=== PATIENT | male | born 1950 | race Caucasian/White ===

== ENCOUNTER 2018-02-25 06:28 | Day surgery (SDC) | payer OTHER ==
[2018-02-25] MEDS ORDERED: Ringers Lactate 1,000 ML IV ONE (06:46)
[2018-02-25] MEDS ORDERED: SIMETHICONE 40 MG/ 0.6 ML ONE (07:09)
[2018-02-25] MEDS ORDERED: HYDROCORTISONE SUC 100 MG INJ ONE (07:28)
[2018-02-25] MEDS ORDERED: LIDOCAINE 2% MPF 5 ML VIAL ONE (07:28)
[2018-02-25] MEDS ORDERED: PROPOFOL 200 MG/20 ML VIAL IV ONE (07:32)
--- NOTE | 2018-02-25 08:04 | ENDO RPT ---
[address], [address] COLONOSCOPY PROCEDURE REPORT EXAM DATE: 02/25/2018 PATIENT NAME: Gopal Zamarripa MR #: [id number] BIRTHDATE: 1950 ATTENDING: Basil Ortega Dr STATUS: outpatient OPERATIONS EXAMINER: Meagan Olivo RN and Suzy Matthews RN INDICATIONS: The patient is a 67 yr old Male here for a colonoscopy due to hematochezia, LLQ abdominal pain, change in bowel habits, and unexplained chronic diarrhea PROCEDURE PERFORMED: Colonoscopy with biopsy MEDICATIONS: Per Anesthesia. ESTIMATED BLOOD LOSS: None CONSENT: The patient understands the risks and benefits of the procedure and understands that these risks include, but are not limited to: sedation, allergic reaction, infection, perforation and/or bleeding. Alternative means of evaluation and treatment include, among others: physical exam, x-rays, and/or surgical intervention. The patient elects to proceed with this endoscopic procedure. DESCRIPTION OF PROCEDURE: During intra-op preparation period all mechanical medical equipment was checked for proper function. Hand hygiene and appropriate measures for infection prevention was taken. Procedure, possible complications, alternatives including, but not limited to possibility of bleeding, perforation, tear, infection, sepsis, need for surgery, need for blood transfusion, were explained to the patient. After the risks, benefits and alternatives of the procedure were thoroughly explained, Informed consent was verified, confirmed and timeout was successfully executed by the treatment team. The patient was placed in the left lateral position. A digital rectal exam was performed and revealed no abnormalities of the rectum. After appropriate level of anesthesia, the scope was passed. The EC-[id number] ([id number] endoscope was introduced through the anus and advanced to the terminal ileum which was intubated for a short distance. The quality of the prep was good. The instrument was then slowly withdrawn as the colon was fully examined. Scope withdrawal time was 8 minutes. COLON FINDINGS: Random biopsies of the terminal ileum / right colon / left colon / rectum obtained. Small internal hemorrhoids were found. Retroflexed views revealed small hemorrhoids. The scope was then completely withdrawn from the patient and the procedure terminated. ADVERSE EVENTS: There were no complications. IMPRESSIONS: 1. Random biopsies of the terminal ileum / right colon / left colon / rectum obtained 2. Small internal hemorrhoids 3. Intubation to terminal ileum 4. History of severe dehydration with heat stroke leading to LLQ pain, change in bowel habits / diarrhea and then hematochezia -> consistent with possilbe ischemic colitis event that has resolved RECOMMENDATIONS: 1. await biopsy results 2. yearly hemoccult starting in 4 years RECALL: Return in 10 year(s) for Colonoscopy. Basil Ortega Dr eSigned: Basil Ortega Dr 02/25/2018 7:56 AM cc: Harvey Ramesh M.D. CPT CODES: ICD9 CODES: PATIENT NAME: BandarsueGopal catherine MR#: [id number]
== END 2018-02-25 08:12 | disposition home or self-care (01) ==
LOC: OR 06:28
PROVIDERS: ATTEND Internal Medicine Gastroenterology
PROC: 0DBP8ZX Excision of Rectum, Via Natural or Artificial Opening Endoscopic, Diagnostic (ICD-10-PCS; 2018-02-25)
PROC: 0DBF8ZX Excision of Right Large Intestine, Via Natural or Artificial Opening Endoscopic, Diagnostic (ICD-10-PCS; 2018-02-25)
PROC: 0DBG8ZX Excision of Left Large Intestine, Via Natural or Artificial Opening Endoscopic, Diagnostic (ICD-10-PCS; 2018-02-25)
PROC: 0DBB8ZX Excision of Ileum, Via Natural or Artificial Opening Endoscopic, Diagnostic (ICD-10-PCS; principal; 2018-02-25 07:30)
DX: K92.1 Melena (principal); R19.7 Diarrhea, unspecified; R10.32 Left lower quadrant pain; K64.8 Other hemorrhoids; E27.1 Primary adrenocortical insufficiency; I10 Essential (primary) hypertension; M19.90 Unspecified osteoarthritis, unspecified site; Z87.891 Personal history of nicotine dependence
CPT/HCPCS: 45380; 88305; J1720